=== PATIENT | female | born 1975 | race Caucasian/White ===

== ENCOUNTER 2019-06-12 12:12 | Emergency (ER) | payer OTHER ==
[~2019-06-12] VITALS: Ht 162.6 cm; Wt 87.5 kg
[2019-06-12 15:12] VITALS: BP 139/58
== END 2019-06-12 15:12 | disposition home or self-care (01) ==
LOC: ED 12:12
DX: R05 Cough (principal); R09.81 Nasal congestion

== ENCOUNTER 2019-06-16 14:03 | Emergency (ER) | payer OTHER ==
[~2019-06-16] VITALS: Ht 157.5 cm; Wt 87.5 kg
[2019-06-16 14:13] VITALS: BP 119/79; Ht 157.5 cm; Wt 87.5 kg
== END 2019-06-16 17:53 | disposition home or self-care (01) ==
LOC: ED 14:03
DX: J20.9 Acute bronchitis, unspecified (principal)